=== PATIENT | female | born 1975 | race American Indian/Alaskan Native ===

== ENCOUNTER 2024-07-06 23:15 | Emergency (ER) | payer SELFPAY ==
[2024-07-06] MEDS ORDERED: Acetaminophen/Codeine 300-30 MG Tab PO ONE (23:16)
[2024-07-06] MEDS ORDERED: Penicillin V Potassium 250 MG Tab PO ONE (23:16)
== END 2024-07-07 00:10 | disposition home or self-care (01) ==
LOC: FB.ED 23:15
DX: K08.89 Other specified disorders of teeth and supporting structures (principal)
CPT/HCPCS: 99282; 99283; A9270-GY